=== PATIENT | male | born 1975 | race Caucasian/White ===

== ENCOUNTER → 2016-09-28 | Outpatient (CLI) | payer OTHER, BC | LOC: RAD 10:38 | PROVIDERS: ATTEND Nurse Practitioner Family | DX: M25.522 Pain in left elbow (principal); M25.512 Pain in left shoulder; S20.212A Contusion of left front wall of thorax, initial encounter; W22.8XXA Striking against or struck by other objects, initial encounter | CPT/HCPCS: 71020; 73030; 73070 ==